=== PATIENT | female | born 1980 | race Caucasian/White ===

== ENCOUNTER 2024-01-22 11:36 | Emergency (ER) | payer MEDICAID ==
[~2024-01-22] VITALS: Ht 162.6 cm; Wt 84.1 kg
[2024-01-22 13:46] LABS: BASOPHILS # (AUTO) 0.1 X10'3 (0-0.2); EOSINOPHILS # (AUTO) 0.3 X10'3 (0-0.9); EOSINOPHILS % (AUTO) 2.6 % (0-6); HEMATOCRIT 43.5 % (35.0-45.0); HEMOGLOBIN 14.1 g/dl (12.0-16.0); LYMPHOCYTES # (AUTO) 2.7 X10'3 (1.1-4.8); MEAN CORPUSCULAR HGB CONC 32.4 g/dL (33.0-36.5); MEAN CORPUSCULAR VOLUME 95.7 FL (78-98); MEAN PLATELET VOLUME 8.5 FL (7.4-10.4); MONOCYTES # (AUTO) 0.7 X10'3 (0-0.9); NEUTROPHILS # (AUTO) 6.5 X10'3 (1.8-7.7); NEUTROPHILS % (AUTO) 63.4 % (42-75); PLATELET COUNT 358 X10'3 (140-440); RED BLOOD COUNT 4.54 X10'6 (4.20-5.60); RED CELL DISTRIBUTION WIDTH 13.9 % (11.5-14.5); WHITE BLOOD COUNT 10.2 X10'3 (4.5-11.0)
[2024-01-22 14:04] LABS: ALBUMIN 3.7 G/DL (3.4-5.0); ANION GAP 11 (8-16); BLOOD UREA NITROGEN 11 MG/DL (7-18); BUN/CREATININE RATIO 15.1 (10.0-20.0); CALCIUM 8.8 MG/DL (8.5-10.1); CHLORIDE 103 MMOL/L (99-107); CREATININE 0.73 MG/DL (0.40-0.90); GLUCOSE 73 MG/DL (70-104); POTASSIUM 3.7 MMOL/L (3.5-5.1); SODIUM 139 MMOL/L (135-145); TOTAL CARBON DIOXIDE 25.4 MMOL/L (24-32); eCRCL 87 ML/MIN; eGFR 87 ML/MIN
[2024-01-22] MEDS ORDERED: ALBU18HF2 INH (14:16)
[2024-01-22] MEDS ORDERED: METH4TAB81 PO (14:16)
[2024-01-22] MEDS ORDERED: GUAI120015 PO (14:16)
[2024-01-22] MEDS ORDERED: ONDA8TAB13 PO (14:16)
[2024-01-22 14:29] VITALS: BP 132/88; PULSE 79; RESP 16; TEMP 98.5; O2SAT 99
[2024-01-22] MEDS ORDERED: acetaminophen 325mg tablet PO ONE (14:35)
== END 2024-01-22 14:32 | disposition home or self-care (01) ==
LOC: ER 11:36
DX: J06.9 Acute upper respiratory infection, unspecified (principal); Z91.018 Allergy to other foods
CPT/HCPCS: 36415; 71045; 80048; 85025; 99284